=== PATIENT | female | born 1930 | race African-American/Black ===

== ENCOUNTER 2016-06-23 08:39 | Observation (INO) | payer OTHER ==
--- NOTE | 2016-06-22 19:12 | MH ---
cc: SEVERINO FELIX DATE OF ADMISSION: 06/23/2016 ADMISSION DIAGNOSIS Herniated nucleus pulposus of the lumbar spine. HISTORY This patient is an 86-year-old female with a known history of previous laminectomy who did well years ago. The patient developed debilitating radiating right leg pain in the end of March. She has developed weakness into the right leg. Investigative studies shows evidence of a foraminal disc herniation to the right at the L4-5 level. She has had conservative care including injections, medications, etc. The patient has been cleared for surgery because she is now getting weakness into the leg. She presents for surgical treatment. PAST MEDICAL HISTORY, SOCIAL HISTORY, FAMILY HISTORY, REVIEW OF SYSTEMS: See attached notes. PHYSICAL EXAMINATION VITAL SIGNS: 5 feet, 97 pounds, BMI of 18.9. Blood pressure 132/72. HEENT: Normocephalic, atraumatic. Pupils equal, round, reactive to light and accommodation. Extraocular motions intact. NECK: Supple. CHEST: Clear. HEART: Regular rate and rhythm. ABDOMEN: Soft, nontender, normoactive bowel sounds. MUSCULOSKELETAL: Motor strength shows weakness of the right extensor hallucis longus and anterior tibialis. Sensation is mildly altered at the lateral border of the right leg extending into the foot. IMAGING MRI scan of the lumbar spine shows evidence of a foraminal far lateral disc herniation at L4-5 with significant right L4 nerve root compromise. There has been a previous laminectomy to the left at the L4-5 level which looks satisfactory. IMPRESSION Status post lumbar laminectomy left L4-5 1. Herniated nucleus pulposus L4-5 right, foraminal, far lateral. 2. Right lumbosacral radiculopathy. PLAN Far lateral exposure L4-5, resection of herniated nucleus pulposus, foraminotomy. CONSENT There are risks of surgery including infection, bleeding, loss of motion, continued pain, need for further surgery, neurologic and vascular injury. The patient understands these issues and wishes to press on with surgery as outlined above. MD SHIREEN Pruitt/NIKIA /5:52 PM /6:44 PM
[~2016-06-23] VITALS: Ht 160 cm; Wt 43.4 kg
[~2016-06-23 08:39] MED LIST: ALEN1TAB48 PO; GABA300C5 PO; LOVA20TA PO; METO25TA6 PO
[2016-06-23] MEDS ORDERED: ARTIFICIAL TEARS OPTH OINT 3.5 APPLIC/3.5 GM TUBO ONE (08:55)
[2016-06-23] MEDS ORDERED: ACETAMINOPHEN 1000 MG/100 ML VIAL IV ONE (08:55)
[2016-06-23] MEDS ORDERED: BUPIVACAINE/EPINEPHRINE 0.25% PF 30 ML VIAL ONE (09:23)
[2016-06-23] MEDS ORDERED: GELATIN 12 MM/7 MM FOAM ONE (09:23)
[2016-06-23] MEDS ORDERED: GENTAMICIN SULFATE 80 MG/2 ML VIAL ONE (09:23)
[2016-06-23 09:30] VITALS: BP 151/76; PULSE 90; RESP 22; TEMP 97.8; O2SAT 100
[2016-06-23] MEDS ORDERED: ENAL5TAB PO (09:33)
[2016-06-23] MEDS ORDERED: DRON5CAP PO (09:33)
[2016-06-23] MEDS ORDERED: ASPI1TAB69 PO (09:33)
[2016-06-23] MEDS ORDERED: INSULIN HUMAN REGULAR 1,000 UNITS/10 ML VIAL SQ PRN (09:45)
[2016-06-23] MEDS ORDERED: CHLORHEXIDINE GLUCONATE 4% SOLN 120 ML BTL TOP SCH (09:45)
[2016-06-23] MEDS: SODIUM CHLORID 0.9% 500 ML IV SCH (09:45)
[2016-06-23] MEDS: LACTATED RINGER'S 1000 ML IV SCH ×2 (09:45→13:40)
[2016-06-23] MEDS ORDERED: METOPROLOL TARTRATE 25 MG TAB PO PRN (09:45)
[2016-06-23] MEDS ORDERED: ceFAZolin 2 GM PREMIX 50 ML IV SCH (09:45)
[2016-06-23] MEDS ORDERED: FAMOTIDINE 20 MG/2 ML VIAL ONE (10:33)
[2016-06-23] MEDS ORDERED: ceFAZolin INJ 1,000 MG VIAL ONE (10:49)
[2016-06-23] MEDS ORDERED: PROPOFOL 200 MG/20 ML AMP IV ONE (12:00)
[2016-06-23] MEDS ORDERED: KETOROLAC TROMETHAMINE 60 MG/2 ML (IM) VIAL IM ONE (12:00)
[2016-06-23] MEDS ORDERED: NORMOSOL R INJ 1,000 ML IV ONE (12:00)
[2016-06-23] MEDS ORDERED: ONDANSETRON HCL 4 MG/2 ML VIAL IV PUSH ONE (12:00)
[2016-06-23] MEDS ORDERED: PHENYLEPH/NS 1000 MCG/10 ML SYR IV ONE (12:00)
[2016-06-23] MEDS ORDERED: NEOSTIGMINE 3 MG/3 ML SYR IV ONE (12:00)
[2016-06-23] MEDS ORDERED: BETAMETHASONE SOD PHOS/ACETATE SUSP 30 MG/5 ML VIAL OTHER ONE (12:19)
[2016-06-23] MEDS ORDERED: ALENDRONATE SODIUM 70 MG TAB PO SCH (12:45)
--- NOTE | 2016-06-23 12:54 | PD.OP ---
cc: Riley Gaines. Operative Report Date of Surgery: Jun 23, 2016 Preoperative Diagnosis: Herniated nucleus pulposus, L4 5, right, foraminal/far lateral. Foraminal stenosis right L4 5 Right L4 radiculopathy Postoperative Diagnosis: Same Procedure: Far lateral exposure right L4 5, resection herniated nucleus pulposus. Use of dilation port and microscope Anesthesia: Gen. Surgeon: Riley Gaines Freight Rate Clerk(s): JAVID Alejandre Operation and Findings: EBL: 50 cc INDICATION: Patient is an 86-year-old female with significant left leg pain with weakness. Studies shows evidence of a foraminal/far lateral disc herniation at the L4 5 level with significant compression upon the exiting left L4 nerve root. Despite injections, the patient continued to be painful and weak. She presents for surgical treatment. NOTE: Lore Alejandre PA-C was present for the entire surgical procedure as my nurse first aid. In my medical opinion her skill and care was necessary for the proper management of this patient. PROCEDURE: The patient was brought to the operating room and anesthetized in the supine position. The patient was rolled to a prone position on a Robert frame on a Kee table. All pressure points were protected in the back was scrubbed with alcohol followed by Hibiclens followed by ChloraPrep and draped sterilely. A timeout was done and antibiotics were given. AP and lateral radiographic images were used to identify the proper levels and perform skin markings. We started from the right side at the L4 5 level. A paramedian incision was made and an off-midline fascial incision was made. A dilating system was placed down to the upper edge of the lower level transverse process and held provisionally to the side of the table. The microscope was brought into the field. A high-speed bur under the microscope was used to perform a partial lateral facetectomy with foraminotomy and exposure from that side. The foramen was exposed. We explored down to the superior edge of the pedicle. The disc space was approached. An annulotomy was performed. We worked away above the disc space and underneath exiting nerve root. Carefully the exiting nerve root was retracted slightly lateral working in the axilla. We found several large sequestered fragments of disc that were above the disc space and underneath exiting nerve root. There was significant compression upon the exiting nerve root. This was completely decompressed. We followed the exiting nerve root across the disc space. We extended up allowing us to probe up to the upper level pedicle and medial to that to ensure there was no additional fragment within the canal. We probed underneath the crossing nerve root and could find no additional nerve root compression. The wound was irrigated copiously. A small piece of Gelfoam with Celestone was placed into the epidural space. Hemostasis was controlled. The deep fascia was approximated with interrupted 0 Vicryl suture subcutaneous suture with 2-0 Vicryl suture and skin with running intradermal 3-0 Vicryl followed by Dermabond. A field block with local anesthesia was utilized. A sterile dressing was applied. The sponge count and needle counts and instrument counts were all correct. The patient tolerated the procedure well as taken to the recovery room in satisfactory condition. FINDINGS: There was evidence of a large sequestered disc herniation with multiple fragments. Severe L4 nerve root compression was found. The final result was very satisfactory. No complication was appreciated. There was no leak of cerebrospinal fluid Riley Gaines MD Jun 23, 2016 12:54
[2016-06-23] MEDS ORDERED: HYDR-3288 PO (12:55)
--- NOTE | 2016-06-23 15:15 | RADRPT ---
EXAM DATE/TIME: 06/23/2016 11:50 [facility] COMPARISON: No previous studies available for comparison. INDICATIONS : Lumbar spine L4-5 laminectomy. OR. MEDICAL HISTORY : None. SURGICAL HISTORY : None. ENCOUNTER: Initial ACUITY: 1 day PAIN SCORE: Non-responsive. LOCATION: Lumbar L4-5 FINDINGS: A single lateral view of the lumbar spine was performed. Sagittal and cement is projected over the p osterior elements at L4-5. No malalignment of the spine. CONCLUSION: 1. Level localization as above. Zeferino Moses MD on June 23, 2016 at 15:08 Board Certified Radiologist. This report was verified electronically.
[2016-06-23 18:00] VITALS: BP 147/66; PULSE 80; RESP 18; TEMP 96.1; O2SAT 99
[2016-06-23 20:00] VITALS: BP 107/52; PULSE 82; RESP 20; TEMP 98.2; O2SAT 100
[2016-06-23] MEDS: GABAPENTIN 300 MG CAP PO SCH (20:58)
[2016-06-24] VITALS: BP 128/61; PULSE 84; RESP 20; TEMP 96.4; O2SAT 99
[2016-06-24] MEDS: SODIUM CHLORID 0.9% 500 ML IV SCH (00:48)
[2016-06-24 04:00] VITALS: BP 113/49; PULSE 80; RESP 20; TEMP 97; O2SAT 100
[2016-06-24 08:00] VITALS: BP 106/55; PULSE 82; RESP 19; TEMP 98; O2SAT 99
--- NOTE | 2016-06-24 08:05 | PD.ORT.PN ---
Subjective Subjective Remarks Leg pain much better today. 'Pins and needles' resolved. Back only 'a little sore'. No other complaints. No new leg pain . No CP or SOB. Objective Vitals Vital Signs Date Time Temp Pulse Resp B/P Pulse Ox O2 Delivery O2 Flow Rate FiO2 06/24/16 00:00 96.4 84 20 128/61 99 06/23/16 20:00 98.2 82 20 107/52 100 06/23/16 18:00 96.1 80 18 147/66 99 06/23/16 17:30 80 13 127/58 100 Room Air 06/23/16 16:30 97.5 76 12 131/63 100 Room Air 06/23/16 16:00 97.7 06/23/16 16:00 69 13 124/62 100 Nasal Cannula 2 06/23/16 15:00 73 13 128/58 100 Nasal Cannula 2 06/23/16 14:45 72 15 127/60 100 Nasal Cannula 2 06/23/16 14:30 69 13 134/62 100 Nasal Cannula 2 06/23/16 14:15 70 14 128/65 100 Nasal Cannula 2 06/23/16 14:00 65 17 139/57 100 Nasal Cannula 2 06/23/16 13:45 70 14 141/63 100 Nasal Cannula 2 06/23/16 13:40 96.1 06/23/16 13:30 96.1 78 15 161/75 100 Nasal Cannula 4 06/23/16 09:30 97.8 90 22 151/76 100 I/O 06/23/16 06/23/16 06/23/16 06/24/16 06/24/16 06/24/16 07:00 15:00 23:00 07:00 15:00 23:00 Intake Total 1400 ml 1183 ml Output Total 30 ml Balance 1370 ml 1183 ml Intake Oral 620 ml IV Total 563 ml Other 1400 ml Estimated Blood Loss 30 ml # Voids 2 Objective Remarks Laying in bed, RN at bedside NAD VSS L/S Dressing c/d/i, skin glue over incision, mild swelling, no erythema +motor at, +sens, +nvi Neg homans bilat Assessment & Plan Ortho Post Op Day #: 1 Problem List: Assessment and Plan pod#1 s/p Far lateral exp, resection HNP L45 Ok to d/c home later today. PO pain med as needed. Ice lumbar spine as needed. 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 Ok to remove when in bed. Ok to change dressing tomorrow. Ok to shower pod#2. Limited lifting/bending for 4-6 weeks. F/U in 2 weeks as scheduled. Sosa Peralta Jun 24, 2016 08:05
--- NOTE | 2016-06-24 08:06 | HHI.DCPOC ---
Discharge Care Plan Diagnosis: (1) Lumbar spinal stenosis (2) Herniated nucleus pulposus of lumbosacral region Your Health Problems Are: Incision/Drains Goals to Promote Your Health * To prevent worsening of your condition and complications * To maintain your health at the optimal level Directions to Meet Your Goals Take your medications as prescribed Follow your dietary instruction Follow activity as directed Keep your appointments as scheduled Take your immunizations and boosters as scheduled If your symptoms worsen call your PCP, if no PCP go to Urgent Care Center or Emergency Room Smoking is Dangerous to Your Health. Avoid second hand smoke Call the 24-hour hour crisis hotline for domestic abuse at Sosa Peralta Jun 24, 2016 08:06
--- NOTE | 2016-06-24 08:07 | HHI.DS ---
Discharge Summary Admission Date Jun 23, 2016 at 14:47 Discharge Date: Jun 24, 2016 Admitting Diagnosis see below Diagnosis: (1) Lumbar spinal stenosis Diagnosis: Principal (2) Herniated nucleus pulposus of lumbosacral region Diagnosis: Principal Procedures Far lateral exposure, resection HNP L45 Brief History This is a 86 year old female patient with back and right leg pain since april 2016. She has previous back surgery in 2011 and had done well. She began having new intense right lateral leg pain to the calf. Imaging studies were performed and she was found to have a far lateral disc herniation at L45. She was fit with a brace but because of her pain and gait disturbance surgical treatment was recommended. She elected to move forward. PE at Discharge Laying in bed, RN at bedside NAD VSS L/S Dressing c/d/i, skin glue over incision, mild swelling, no erythema +motor at, +sens, +nvi Neg [facility] Hospital Course Surgical treatment was performed on the day of admission without complication. She recovered well in PACU and was transferred to the orthopaedic floor. Pain was controlled with IV and oral medications. She was compliant with her lumbar brace. After 1 day she was found to be stable and discharged home with instruction to continue her brace for 3-4 weeks, to avoid lifting and to pursue a high fiber diet. Pt Condition on Discharge: Stable Discharge Disposition: Discharge Home Discharge Instructions Diet Instructions: High Fiber Diet Activities You Can Perform: Weight Bearing as Manoj Activities to Avoid: Strenuous Activity New Medications: Hydrocodone-Acetaminophen ([place]) 7.5-325 mg Tab 1 TAB PO Q4H PRN PAIN #40 Ref 0 TAB Continued Medications: Alendronate (Alendronate) 70 Mg Tab 70 MG PO Q7D Osteporosis Treatment #4 Ref 0 TAB Aspirin (Aspirin) 81 Mg Tabdr 81 MG PO DAILY TAB Dronabinol (Dronabinol) 5 Mg Cap 5 MG PO DAILY Ref 0 CAP Enalapril (Enalapril) 5 Mg Tab 5 MG PO DAILY #30 Ref 0 TAB Gabapentin (Gabapentin) 300 Mg Cap 300 MG PO BID #60 Ref 0 CAP Lovastatin (Lovastatin) 20 Mg Tab 20 MG PO DAILY Cholesterol Management #30 Ref 0 TAB Metoprolol Succinate ER 24 HR (Metoprolol Succinate ER 24 HR) 25 Mg Tab 25 MG PO DAILY #30 Ref 0 TAB Sosa Peraltab 17, 2017 08:07
[2016-06-24 08:58] VITALS: BP 118/62
[2016-06-24] MEDS: GABAPENTIN 300 MG CAP PO SCH (08:59)
[2016-06-24] MEDS ORDERED: ENALAPRIL MALEATE 5 MG TAB PO SCH (09:00)
[2016-06-24] MEDS ORDERED: METOPROLOL SUCCINATE 25 MG EXTENDED RELEASE TAB PO SCH (09:00)
[2016-06-24] MEDS ORDERED: DRONABINOL 5 MG CAP PO SCH (09:00)
[2016-06-24] MEDS ORDERED: ASPIRIN EC 81 MG TABEC PO SCH (09:00)
[2016-06-24] MEDS ORDERED: PRAVASTATIN SOD 20 MG TAB PO SCH (09:00)
[2016-06-24] MEDS ORDERED: MIDAZOLAM HCL 2 MG/2 ML VIAL ONE (11:15)
[2016-06-24 12:00] VITALS: BP 121/57; PULSE 93; RESP 19; TEMP 96.8; O2SAT 94
== END 2016-06-24 13:25 | disposition home or self-care (01) ==
LOC: HSDC 08:39 → N06B 14:47
PROVIDERS: ADMIT Orthopaedic Surgery Orthopaedic Surgery of the Spine; ATTEND Orthopaedic Surgery Orthopaedic Surgery of the Spine
DX: M51.26 Other intervertebral disc displacement, lumbar region (principal); M48.06 Spinal stenosis, lumbar region; M54.17 Radiculopathy, lumbosacral region; M79.604 Pain in right leg; R53.1 Weakness; Z98.1 Arthrodesis status
CPT/HCPCS: 00630; 63030; 72020; 76000; 86850; 86900; 86901; G0378; J0131; J0690; J0702; J1580; J1885; J2250; J2370; J2405; J2710; J7120